=== PATIENT | female | born 1935 | race Caucasian/White ===

== ENCOUNTER 2016-08-25 19:05 | Inpatient (IN) | payer OTHER, MEDICARE ==
[~2016-08-25] VITALS: Ht 157.5 cm; Wt 78.7 kg
[~2016-08-25 19:05] MED LIST: ADULT LOW DOSE81 M1 PO; AMBIEN5 MG PO; AMOXICILLIN500 MG PO; ASPIR-LOW81 MG PO; ASPIR-MOX 325325 MG PO; ATIVAN0.5 MG PO; BENTYL20 MG PO; CO Q-1010 MG PO; COENZYME Q1010 M1 PO; CONZIP100 MG PO; COZAAR100 MG PO; DECARA50000 UNIT PO; DELTASONE10 MG PO; DOCUSATE SODIU100 MG PO; EFFEXOR XR75 MG PO; EFFEXOR75 MG PO; ERGOCALCIF50000 UNIT PO; FEOSOL325 MG PO; FERGON324 MG PO; FLONASE16 G1 BOTH NARES; FLUOXETINE HCL20 MG PO; GABAPENTIN600 MG PO; HYDROCHLOROTH12.5 MG PO; KENALOG,ARISTOC15 G1 TP; LORAZEPAM0.5 MG PO; LORAZEPAM1 MG PO; LOSARTAN POTAS100 MG PO; LOSARTAN POTASS25 MG PO; METOPROLOL SUCC25 MG PO; METOPROLOL SUCC50 MG PO; METOPROLOL TART25 MG PO; MIRALAX17 GM PO; NEURONTIN300 MG PO; NIFEREX-1501 CAPSULE PO; NITROGLYCERIN0.4 MG PO; OMEGA-31000 M1 PO; PAIN RELIEF650 MG PO; PLAVIX75 MG PO; PRAVACHOL10 MG PO; PRAVACHOL40 MG PO; PRAVASTATIN SOD40 MG PO; PREDNISONE1 MG PO; PREDNISONE10 MG PO; PREDNISONE5 MG PO; PRILOSEC20 MG PO; PRILOSEC40 MG PO; PRINIVIL40 MG PO; PROTONIX40 MG PO; RECLAST5 MG/100 M IV; SALINE NASAL SP45 ML BOTH NARES; SENNA-TIME S T1 EACH PO; SYNTHROID100 MCG PO; SYNTHROID137 MCG PO; TOPROL XL50 MG PO; TRAMADOL HCL50 MG PO; TYLENOL EXTRA500 MG PO; ULTRAM50 MG PO; VITAMIN D1000 INTUN PO; VITAMIN D31000 UNIT PO; VOLTAREN 1% GE100 GM TP
[2016-08-25 20:29] LABS: CHLORIDE 107 mEq/L (99-109); POTASSIUM 4.4 mEq/L (3.7-5.4); SODIUM 138 mEq/L (136-147)
[2016-08-25 20:31] LABS: GLUCOSE 140 mg/dL (70-99)
[2016-08-25 20:32] LABS: ANION GAP 12 MEQ/L (2-14)
[2016-08-25 20:33] LABS: TOTAL BILIRUBIN 0.4 mg/dL (0.0-1.0)
[2016-08-25 20:34] LABS: ALKALINE PHOSPHATASE 41 IU/L (3-129)
[2016-08-25 20:35] LABS: GFR ESTIMATE (CALCULATED) > 59 mL/min/; MEAN PLAT.VOLUME 10.1 uM^3 (9.5-12.4); PLATELET COUNT 212 K/uL (156-360)
[2016-08-25 20:36] LABS: HEMATOCRIT 20.5 % (36.0-46.0); MCH 28.5 PG (29.0-34.0); MCHC 30.7 G/DL (30.0-36.0); MCV 92.8 FL (83-99); RBC DIS.WIDTH-CV 15.7 % (11.8-14.6); RBC DIS.WIDTH-SD 49.5 % (39-53); RED BLOOD COUNT 2.21 M/uL (3.80-5.20); UREA NITROGEN (BUN) 18 mg/dL (9-23); WHITE BLOOD COUNT 6.6 K/uL (4.1-10.2)
[2016-08-25] MEDS ORDERED: PLAVIX75 MG PO (22:42)
[2016-08-25 22:45] LABS: TROP-I INTERPRETATION NEGATIVE; TROPONIN-I 0.02 ng/mL (0.0-0.30)
[2016-08-25 23:12] LABS: PROTHROMBIN TIME 10.6 (9.2-11.2); PTT 25.1 (25-32)
[2016-08-25 23:45] LABS: ADD MIUA? YES; BILIRUBIN NEGATIVE; BLOOD SMALL; COLOR YELLOW ((YELLOW)); GLUCOSE (STRIP) NEGATIVE; KETONES NEGATIVE; LEUKOCYTES SMALL; NITRITE NEGATIVE; PH, URINE 5.5 (5-8); PROTEIN (STRIP) NEGATIVE; SPECIFIC GRAVITY 1.017 (1.000-1.030); UROBILINOGEN 0.2 MG/DL (0.2-1.0)
[2016-08-25] MEDS ORDERED: GABAPENTIN300 MG PO (23:50)
[2016-08-25] MEDS ORDERED: ERGOCALCIF50000 UNIT PO (23:53)
[2016-08-26] VITALS (13 sets, daily range): BP systolic 87–144; BP diastolic 48–66
[2016-08-26 00:12] LABS: BACTERIA RARE; CASTS NONE SEEN /LPF; CRYSTALS NONE SEEN; EPITHELIAL CELLS 1+; MUCUS NONE SEEN; RED BLOOD CELLS NONE SEEN /HPF (0-5); UCUL ADDED? NO; WHITE BLOOD CELLS RARE /HPF (0-5)
[2016-08-26 09:01] LABS: ANION GAP 11 MEQ/L (2-14); CHLORIDE 106 MEQ/L (99-109); HEMATOCRIT 28.5 % (36.0-46.0); MCHC 32.3 G/DL (30.0-36.0); MCV 89.9 FL (83-99); PLATELET COUNT 155 K/uL (156-360); RBC DIS.WIDTH-CV 15.3 % (11.8-14.6); RBC DIS.WIDTH-SD 49.7 % (39-53); SAMPLE HEMOLYSIS CHECK 0; SAMPLE ICTERIC CHECK 0; SAMPLE LIPEMIA CHECK 0; SODIUM 137 MEQ/L (136-147); WHITE BLOOD COUNT 5.6 K/uL (4.1-10.2)
[2016-08-26 09:06] LABS: GFR ESTIMATE (CALCULATED) > 59 mL/min/; GLUCOSE 117 mg/dL (70-99); UREA NITROGEN (BUN) 14 mg/dL (9-23)
[2016-08-26 09:07] LABS: POTASSIUM 3.5 MEQ/L (3.7-5.4); RED BLOOD COUNT 3.17 M/uL (3.80-5.20)
[2016-08-27] VITALS (7 sets, daily range): BP systolic 121–152; BP diastolic 57–76
[2016-08-27 05:19] LABS: HEMATOCRIT 24.4 % (36.0-46.0); MCH 29.5 PG (29.0-34.0); MCHC 32.8 G/DL (30.0-36.0); PLATELET COUNT 163 K/uL (156-360); RBC DIS.WIDTH-CV 15.6 % (11.8-14.6); RBC DIS.WIDTH-SD 50.4 % (39-53); RED BLOOD COUNT 2.71 M/uL (3.80-5.20); WHITE BLOOD COUNT 4.6 K/uL (4.1-10.2)
[2016-08-27 05:44] LABS: ALKALINE PHOSPHATASE 30 IU/L (3-129); ANION GAP 7 MEQ/L (2-14); CHLORIDE 110 MEQ/L (99-109); GFR ESTIMATE (CALCULATED) > 59 mL/min/; GLUCOSE 108 mg/dL (70-99); POTASSIUM 4.1 MEQ/L (3.7-5.4); SAMPLE HEMOLYSIS CHECK 0; SAMPLE ICTERIC CHECK 0; SAMPLE LIPEMIA CHECK 0; SODIUM 143 MEQ/L (136-147); TOTAL BILIRUBIN 0.6 MG/DL (0.0-1.0); UREA NITROGEN (BUN) 13 mg/dL (9-23)
[2016-08-27 10:32] LABS: HEMATOCRIT 25.6 % (36.0-46.0); MCV 90.5 FL (83-99)
[2016-08-27 18:01] LABS: HEMATOCRIT 27.2 % (36.0-46.0); MCV 90.4 FL (83-99)
[2016-08-28 03:42] VITALS: BP 115/57; BP 93/58
[2016-08-28 05:24] LABS: EOSINOPHIL (%) 6.6 % (0-5); EOSINOPHIL COUNT 0.3 K/uL (0-0.3); HEMATOCRIT 26.4 % (36.0-46.0); IMMATURE GRANULOCYTE (%) 0.4 % (0.0-0.7); LYMPHOCYTE COUNT 1.7 K/uL (1.0-2.8); MCH 28.8 PG (29.0-34.0); MCHC 31.8 G/DL (30.0-36.0); MCV 90.4 FL (83-99); MEAN PLAT.VOLUME 10.3 uM^3 (9.5-12.4); MONOCYTE (%) 11.6 % (3-12); MONOCYTE COUNT 0.6 K/uL (0-0.8); NEUTROPHIL COUNT 2.4 K/uL (1.8-6.4); PLATELET COUNT 164 K/uL (156-360); RBC DIS.WIDTH-CV 15.8 % (11.8-14.6); RBC DIS.WIDTH-SD 51.2 % (39-53); RED BLOOD COUNT 2.92 M/uL (3.80-5.20)
[2016-08-28 05:46] LABS: ANION GAP 11 MEQ/L (2-14); CHLORIDE 110 MEQ/L (99-109); GFR ESTIMATE (CALCULATED) > 59 mL/min/; GLUCOSE 106 mg/dL (70-99); POTASSIUM 3.7 MEQ/L (3.7-5.4); SAMPLE HEMOLYSIS CHECK 0; SAMPLE ICTERIC CHECK 0; SAMPLE LIPEMIA CHECK 0; SODIUM 142 MEQ/L (136-147); UREA NITROGEN (BUN) 11 mg/dL (9-23)
[2016-08-28 08:10] VITALS: BP 136/60
[2016-08-28 11:50] VITALS: BP 118/63
[2016-08-28 15:31] VITALS: BP 140/63
[2016-08-28 19:13] VITALS: BP 130/61
[2016-08-28 23:16] VITALS: BP 132/58
[2016-08-29 04:01] LABS: HEMATOCRIT 25.2 % (36.0-46.0); MCH 28.8 PG (29.0-34.0); MCHC 31.7 G/DL (30.0-36.0); MCV 90.6 FL (83-99); MEAN PLAT.VOLUME 9.8 uM^3 (9.5-12.4); PLATELET COUNT 185 K/uL (156-360); RBC DIS.WIDTH-SD 48.1 % (39-53); RED BLOOD COUNT 2.78 M/uL (3.80-5.20); WHITE BLOOD COUNT 4.7 K/uL (4.1-10.2)
[2016-08-29 04:08] LABS: CHLORIDE 114 mEq/L (99-109); POTASSIUM 3.6 mEq/L (3.7-5.4); SODIUM 142 mEq/L (136-147)
[2016-08-29 04:10] VITALS: BP 145/66
[2016-08-29 04:10] LABS: GLUCOSE 113 mg/dL (70-99)
[2016-08-29 04:12] LABS: ANION GAP 10 MEQ/L (2-14)
[2016-08-29 04:14] LABS: GFR ESTIMATE (CALCULATED) > 59 mL/min/
[2016-08-29 04:15] LABS: UREA NITROGEN (BUN) 9 mg/dL (9-23)
[2016-08-29 07:48] VITALS: BP 140/62
[2016-08-29 11:14] VITALS: BP 136/64
[2016-08-29 12:34] LABS: HEMATOCRIT 29.2 % (36.0-46.0); MCV 90.1 FL (83-99)
[2016-08-29 16:30] VITALS: BP 142/61
[2016-08-29 19:28] VITALS: BP 133/61
[2016-08-29 23:00] VITALS: BP 160/74
[2016-08-30 04:09] VITALS: BP 163/74
[2016-08-30 06:42] LABS: EOSINOPHIL (%) 4.9 % (0-5); EOSINOPHIL COUNT 0.3 K/uL (0-0.3); HEMATOCRIT 27.1 % (36.0-46.0); LYMPHOCYTE COUNT 1.6 K/uL (1.0-2.8); MCH 28.8 PG (29.0-34.0); MCHC 31.7 G/DL (30.0-36.0); MCV 90.6 FL (83-99); MONOCYTE (%) 9.9 % (3-12); MONOCYTE COUNT 0.6 K/uL (0-0.8); NEUTROPHIL (%) 56.5 % (45-76); NEUTROPHIL COUNT 3.3 K/uL (1.8-6.4); PLATELET COUNT 180 K/uL (156-360); RBC DIS.WIDTH-CV 15.4 % (11.8-14.6); RBC DIS.WIDTH-SD 50.6 % (39-53); RED BLOOD COUNT 2.99 M/uL (3.80-5.20); WHITE BLOOD COUNT 5.8 K/uL (4.1-10.2)
[2016-08-30 06:59] LABS: ANION GAP 11 MEQ/L (2-14); CHLORIDE 109 MEQ/L (99-109); GFR ESTIMATE (CALCULATED) > 59 mL/min/; GLUCOSE 128 mg/dL (70-99); POTASSIUM 3.5 MEQ/L (3.7-5.4); SAMPLE HEMOLYSIS CHECK 0; SAMPLE ICTERIC CHECK 0; SAMPLE LIPEMIA CHECK 0; SODIUM 141 MEQ/L (136-147); UREA NITROGEN (BUN) 9 mg/dL (9-23)
[2016-08-30 07:10] VITALS: BP 122/63
[2016-08-30 11:35] VITALS: BP 111/64
== END 2016-08-30 13:28 | disposition home health service (06) | DRG 377 ==
LOC: EME 19:05 → EDOF 08-26 02:46 → 4EAST 08-26 02:46
PROVIDERS: Emergency Medicine; Internal Medicine; Internal Medicine Gastroenterology; Nurse Practitioner Adult Health; Physician Assistant
PROC: 30233N1 Transfusion of Nonautologous Red Blood Cells into Peripheral Vein, Percutaneous Approach (ICD-10-PCS; principal; 2016-08-26)
PROC: 0DJD8ZZ Inspection of Lower Intestinal Tract, Via Natural or Artificial Opening Endoscopic (ICD-10-PCS; 2016-08-29)
DX: K57.31 Diverticulosis of large intestine without perforation or abscess with bleeding (principal); I71.02 Dissection of abdominal aorta; I77.72 Dissection of iliac artery; I42.2 Other hypertrophic cardiomyopathy; D64.9 Anemia, unspecified; E03.9 Hypothyroidism, unspecified; K21.9 Gastro-esophageal reflux disease without esophagitis; I25.10 Atherosclerotic heart disease of native coronary artery without angina pectoris; E87.6 Hypokalemia; Z66 Do not resuscitate; E78.5 Hyperlipidemia, unspecified; I73.9 Peripheral vascular disease, unspecified; I11.9 Hypertensive heart disease without heart failure; K64.8 Other hemorrhoids; I65.22 Occlusion and stenosis of left carotid artery; K58.9 Irritable bowel syndrome, unspecified; K44.9 Diaphragmatic hernia without obstruction or gangrene; T82.857D Stenosis of other cardiac prosthetic devices, implants and grafts, subsequent encounter; Z86.73 Personal history of transient ischemic attack (TIA), and cerebral infarction without residual deficits; Z88.5 Allergy status to narcotic agent; M79.7 Fibromyalgia; M19.90 Unspecified osteoarthritis, unspecified site; Z79.82 Long term (current) use of aspirin; Z79.02 Long term (current) use of antithrombotics/antiplatelets; Z79.52 Long term (current) use of systemic steroids; Z87.891 Personal history of nicotine dependence; Z98.61 Coronary angioplasty status; Z95.2 Presence of prosthetic heart valve; Z96.651 Presence of right artificial knee joint; Z96.611 Presence of right artificial shoulder joint; Z96.612 Presence of left artificial shoulder joint; Z80.9 Family history of malignant neoplasm, unspecified; Z82.49 Family history of ischemic heart disease and other diseases of the circulatory system
CPT/HCPCS: 74177; 80048; 80053; 80069; 81003; 84100; 84484; 85014; 85018; 85025; 85027; 85610; 85730; 86850; 86870; 86900; 86901; 86905; 86920; 93005; 99281; 99285; B4087; C9113; J1650; J3010; J3480; J7512; P9016

== ENCOUNTER 2017-02-02 10:59 | Emergency (ER) | payer OTHER, MEDICARE ==
[~2017-02-02] VITALS: Ht 157.5 cm; Wt 86.4 kg
[~2017-02-02 10:59] MED LIST changes: +GABAPENTIN300 MG PO
[2017-02-02 11:28] LABS: EOSINOPHIL (%) 3.6 % (0-5); EOSINOPHIL COUNT 0.2 K/uL (0-0.3); HEMATOCRIT 35.3 % (36.0-46.0); IMMATURE GRANULOCYTE (%) 0.4 % (0.0-0.7); INSTRUMENT ABS NEUTROPHIL CT 4.8 K/uL; MCH 30.3 PG (29.0-34.0); MCHC 31.7 G/DL (30.0-36.0); MCV 95.4 FL (83-99); MEAN PLAT.VOLUME 9.6 uM^3 (9.5-12.4); MONOCYTE (%) 8.4 % (3-12); MONOCYTE COUNT 0.6 K/uL (0-0.8); NEUTROPHIL (%) 71.9 % (45-76); NEUTROPHIL COUNT 4.8 K/uL (1.8-6.4); PLATELET COUNT 140 K/uL (156-360); RBC DIS.WIDTH-CV 14.3 % (11.8-14.6); RBC DIS.WIDTH-SD 49.9 % (39-53); WHITE BLOOD COUNT 6.7 K/uL (4.1-10.2)
[2017-02-02 11:39] LABS: PROTHROMBIN TIME 10.2 (9.2-11.2); PTT 27.6 (25-32)
[2017-02-02 11:42] LABS: CHLORIDE 107 mEq/L (99-109); POTASSIUM 3.5 mEq/L (3.7-5.4); SODIUM 140 mEq/L (136-147)
[2017-02-02 11:44] LABS: GLUCOSE 126 mg/dL (70-99)
[2017-02-02 11:46] LABS: ANION GAP 9 MEQ/L (2-14); TOTAL BILIRUBIN 0.7 mg/dL (0.0-1.0)
[2017-02-02 11:48] LABS: ALKALINE PHOSPHATASE 38 IU/L (3-129); GFR ESTIMATE (CALCULATED) > 59 mL/min/
[2017-02-02 11:49] LABS: UREA NITROGEN (BUN) 12 mg/dL (9-23)
[2017-02-02 11:51] LABS: CREATINE KINASE 100 IU/L (1-294); TOTAL CK 100 IU/L (1-294)
[2017-02-02 11:55] LABS: TROP-I INTERPRETATION NEGATIVE; TROPONIN-I < 0.01 ng/mL (0.0-0.30)
[2017-02-02 11:57] LABS: CK-MB 1.9 ng/mL (0.0-4.9)
[2017-02-02 12:18] LABS: ADD MIUA? NO; BILIRUBIN NEGATIVE; BLOOD NEGATIVE; COLOR YELLOW ((YELLOW)); GLUCOSE (STRIP) NEGATIVE; KETONES NEGATIVE; LEUKOCYTES NEGATIVE; NITRITE NEGATIVE; PROTEIN (STRIP) NEGATIVE; SPECIFIC GRAVITY 1.009 (1.000-1.030); UCUL ADDED? NO; UROBILINOGEN 0.2 MG/DL (0.2-1.0)
[2017-02-02] MEDS ORDERED: PERCOCET 5/31 TABLET PO (14:52)
[2017-02-02 16:12] VITALS: BP 152/67
== END 2017-02-02 16:16 | disposition home or self-care (01) ==
LOC: EME 10:59
PROVIDERS: Emergency Medicine
DX: T14.8 Other injury of unspecified body region (principal); M79.602 Pain in left arm; N64.4 Mastodynia; W18.30XA Fall on same level, unspecified, initial encounter; Z86.73 Personal history of transient ischemic attack (TIA), and cerebral infarction without residual deficits; K21.9 Gastro-esophageal reflux disease without esophagitis; J45.909 Unspecified asthma, uncomplicated; I10 Essential (primary) hypertension; Z95.5 Presence of coronary angioplasty implant and graft; Z87.891 Personal history of nicotine dependence
CPT/HCPCS: 71010; 73502; 80053; 81003; 82550; 82553; 84484; 85025; 85610; 85730; 93005; 99281; 99284; G8978 GP CJ; G8979 GP CH; G8987 GO CM; G8988 GO CH; J2270

== ENCOUNTER 2017-04-27 13:33 | Inpatient (IN) | payer OTHER, MEDICARE ==
[~2017-04-27] VITALS: Ht 157.5 cm; Wt 83.6 kg
[~2017-04-27 13:33] MED LIST changes: -GABAPENTIN300 MG PO; +GABAPENTIN400 MG PO; +PERCOCET 5/31 TABLET PO
[2017-04-27 14:50] LABS: HEMATOCRIT 30.2 % (36.0-46.0); MCH 29.5 PG (29.0-34.0); MCHC 32.1 G/DL (30.0-36.0); MCV 91.8 FL (83-99); MEAN PLAT.VOLUME 9.8 uM^3 (9.5-12.4); PLATELET COUNT 148 K/uL (156-360); RBC DIS.WIDTH-CV 14.8 % (11.8-14.6); RBC DIS.WIDTH-SD 50.2 % (39-53); RED BLOOD COUNT 3.29 M/uL (3.80-5.20); WHITE BLOOD COUNT 5.8 K/uL (4.1-10.2)
[2017-04-27 15:01] LABS: CHLORIDE 105 mEq/L (99-109); POTASSIUM 3.6 mEq/L (3.7-5.4); SODIUM 139 mEq/L (136-147)
[2017-04-27 15:03] LABS: GLUCOSE 151 mg/dL (70-99)
[2017-04-27 15:04] LABS: ANION GAP 12 MEQ/L (2-14)
[2017-04-27 15:07] LABS: GFR ESTIMATE (CALCULATED) 50 mL/min/
[2017-04-27 15:08] LABS: UREA NITROGEN (BUN) 20 mg/dL (9-23)
[2017-04-27 18:15] LABS: EOSINOPHIL (%) 2.3 % (0-5); EOSINOPHIL COUNT 0.1 K/uL (0-0.3); HEMATOCRIT 28.5 % (36.0-46.0); IMMATURE GRANULOCYTE (%) 0.4 % (0.0-0.7); INSTRUMENT ABS NEUTROPHIL CT 2.9 K/uL; MCH 29.2 PG (29.0-34.0); MCHC 32.6 G/DL (30.0-36.0); MCV 89.3 FL (83-99); MEAN PLAT.VOLUME 9.9 uM^3 (9.5-12.4); MONOCYTE (%) 9.5 % (3-12); MONOCYTE COUNT 0.5 K/uL (0-0.8); NEUTROPHIL (%) 52.4 % (45-76); NEUTROPHIL COUNT 2.9 K/uL (1.8-6.4); PLATELET COUNT 140 K/uL (156-360); RBC DIS.WIDTH-CV 14.8 % (11.8-14.6); RED BLOOD COUNT 3.19 M/uL (3.80-5.20); WHITE BLOOD COUNT 5.6 K/uL (4.1-10.2)
[2017-04-27] MEDS ORDERED: FERROUS GLUCON324 MG PO (20:07)
[2017-04-27] MEDS ORDERED: WELLBUTRIN XL150 MG PO (20:13)
[2017-04-27] MEDS ORDERED: ZANTAC150 MG PO (20:13)
[2017-04-27] MEDS ORDERED: TRAZODONE HCL50 MG PO (20:14)
[2017-04-27] MEDS ORDERED: PREDNISOLONE AC15 ML LEFT EYE (20:15)
[2017-04-27] MEDS ORDERED: DITROPAN5 MG PO (20:18)
[2017-04-27] MEDS ORDERED: CYMBALTA60 MG PO (20:18)
[2017-04-27 22:00] VITALS: BP 158/79
[2017-04-27 23:45] VITALS: BP 133/80
[2017-04-28 02:32] LABS: EOSINOPHIL (%) 4.1 % (0-5); EOSINOPHIL COUNT 0.2 K/uL (0-0.3); HEMATOCRIT 28.8 % (36.0-46.0); IMMATURE GRANULOCYTE (%) 0.4 % (0.0-0.7); INSTRUMENT ABS NEUTROPHIL CT 2.6 K/uL; LYMPHOCYTE COUNT 1.5 K/uL (1.0-2.8); MCHC 31.9 G/DL (30.0-36.0); MCV 90.9 FL (83-99); MEAN PLAT.VOLUME 9.7 uM^3 (9.5-12.4); MONOCYTE COUNT 0.5 K/uL (0-0.8); NEUTROPHIL (%) 53.8 % (45-76); NEUTROPHIL COUNT 2.6 K/uL (1.8-6.4); PLATELET COUNT 129 K/uL (156-360); RED BLOOD COUNT 3.17 M/uL (3.80-5.20); WHITE BLOOD COUNT 4.8 K/uL (4.1-10.2)
[2017-04-28 03:08] VITALS: BP 133/60
[2017-04-28 07:33] LABS: EOSINOPHIL (%) 4.4 % (0-5); EOSINOPHIL COUNT 0.2 K/uL (0-0.3); HEMATOCRIT 31.7 % (36.0-46.0); IMMATURE GRANULOCYTE (%) 0.2 % (0.0-0.7); INSTRUMENT ABS NEUTROPHIL CT 2.7 K/uL; LYMPHOCYTE COUNT 1.3 K/uL (1.0-2.8); MCH 29.9 PG (29.0-34.0); MCHC 32.2 G/DL (30.0-36.0); MONOCYTE (%) 11.4 % (3-12); MONOCYTE COUNT 0.5 K/uL (0-0.8); NEUTROPHIL (%) 56.2 % (45-76); NEUTROPHIL COUNT 2.7 K/uL (1.8-6.4); PLATELET COUNT 141 K/uL (156-360); RBC DIS.WIDTH-CV 15.4 % (11.8-14.6); RBC DIS.WIDTH-SD 52.7 % (39-53); RED BLOOD COUNT 3.41 M/uL (3.80-5.20); WHITE BLOOD COUNT 4.7 K/uL (4.1-10.2)
[2017-04-28 07:37] VITALS: BP 120/58
[2017-04-28 08:00] LABS: ALKALINE PHOSPHATASE 37 IU/L (3-129); ANION GAP 7 MEQ/L (2-14); ANION GAP 8 MEQ/L (2-14); CHLORIDE 112 MEQ/L (99-109); GFR ESTIMATE (CALCULATED) > 59 mL/min/; GLUCOSE 126 mg/dL (70-99); GLUCOSE 131 mg/dL (70-99); POTASSIUM 4.2 MEQ/L (3.7-5.4); SAMPLE HEMOLYSIS CHECK 0; SAMPLE ICTERIC CHECK 0; SAMPLE LIPEMIA CHECK 0; SODIUM 144 MEQ/L (136-147); TOTAL BILIRUBIN 0.5 MG/DL (0.0-1.0); UREA NITROGEN (BUN) 12 mg/dL (9-23)
[2017-04-28 08:01] LABS: POTASSIUM 4.4 MEQ/L (3.7-5.4)
[2017-04-28 11:26] VITALS: BP 122/58
[2017-04-28 15:11] LABS: HEMATOCRIT 28.1 % (36.0-46.0)
[2017-04-28 15:22] VITALS: BP 128/60
[2017-04-28 19:53] VITALS: BP 189/77
[2017-04-28 23:46] LABS: HEMATOCRIT 29.4 % (36.0-46.0); MCV 91.3 FL (83-99)
[2017-04-29 00:14] VITALS: BP 175/70
[2017-04-29 03:50] VITALS: BP 167/75
[2017-04-29 06:55] LABS: HEMATOCRIT 30.9 % (36.0-46.0); MCH 29.5 PG (29.0-34.0); PLATELET COUNT 125 K/uL (156-360); RBC DIS.WIDTH-SD 49.9 % (39-53); RED BLOOD COUNT 3.36 M/uL (3.80-5.20); WHITE BLOOD COUNT 4.7 K/uL (4.1-10.2)
[2017-04-29 07:53] VITALS: BP 143/63
== END 2017-04-29 12:32 | disposition home or self-care (01) | DRG 378 ==
LOC: EME 13:33 → 2EAST 20:04 → EDOF 20:04 → ENRESERV 20:07 → 2EAST 21:53
PROVIDERS: Internal Medicine; Physician Assistant; Specialist; Student in an Organized Health Care Education/Training Program
PROC: 0D5K8ZZ Destruction of Ascending Colon, Via Natural or Artificial Opening Endoscopic (ICD-10-PCS; principal; 2017-04-28)
DX: K55.21 Angiodysplasia of colon with hemorrhage (principal); D62 Acute posthemorrhagic anemia; E87.6 Hypokalemia; K57.30 Diverticulosis of large intestine without perforation or abscess without bleeding; I10 Essential (primary) hypertension; I25.10 Atherosclerotic heart disease of native coronary artery without angina pectoris; K21.9 Gastro-esophageal reflux disease without esophagitis; E78.5 Hyperlipidemia, unspecified; K64.8 Other hemorrhoids; E03.9 Hypothyroidism, unspecified; F32.9 Major depressive disorder, single episode, unspecified; M79.7 Fibromyalgia; J45.909 Unspecified asthma, uncomplicated; M19.90 Unspecified osteoarthritis, unspecified site; M06.9 Rheumatoid arthritis, unspecified; E66.9 Obesity, unspecified; Z96.611 Presence of right artificial shoulder joint; Z96.612 Presence of left artificial shoulder joint; Z96.651 Presence of right artificial knee joint; Z68.33 Body mass index [BMI] 33.0-33.9, adult; Z86.73 Personal history of transient ischemic attack (TIA), and cerebral infarction without residual deficits; Z87.11 Personal history of peptic ulcer disease; Z87.891 Personal history of nicotine dependence; Z95.2 Presence of prosthetic heart valve; Z95.5 Presence of coronary angioplasty implant and graft; Z91.81 History of falling
CPT/HCPCS: 36415; 74177; 80048; 80048 91; 80053; 85014; 85018; 85025; 85025 91; 85027; 85610; 85730; 86850; 86870; 86900; 86901; 86905; 86920; 99281; 99285; J7030; S0028